=== PATIENT | male | born 1990 | race Two or more races ===

== ENCOUNTER 2018-11-16 09:28 | Emergency (ER) | payer BC, OTHER ==
[~2018-11-16] VITALS: Ht 180.3 cm; Wt 90.7 kg
--- NOTE | 2018-11-16 09:30 | NUR ---
PT BIB SELF C/O BILATERAL LOWER LEG ABSCESS X 1 WEEK, -FEVER, PT IS AAOX4, NOT IN RESPIRATORY DISTRESS, V/S STABLE, KEPT RESTED AND COMFORTABLE, WILL CONTINUE TO MONITOR. AWAITING ER MD FOR EVAL.
[2018-11-16 09:40] VITALS: BP 104/68
--- NOTE | 2018-11-16 09:50 | NUR ---
DR. YATES AT BEDSIDE FOR EVAL.
--- NOTE | 2018-11-16 10:04 | NUR ---
Patient discharged to home in stable condition. Written and verbal after care instructions given. Patient verbalizes understanding of instruction.
== END 2018-11-16 10:07 | disposition home or self-care (01) ==
LOC: ER 09:32
DX: L02.416 Cutaneous abscess of left lower limb (principal); L02.415 Cutaneous abscess of right lower limb; L03.116 Cellulitis of left lower limb; L03.115 Cellulitis of right lower limb; F17.200 Nicotine dependence, unspecified, uncomplicated